=== PATIENT | female | born 1960 | race Caucasian/White ===

== ENCOUNTER 2017-05-24 09:16 | Emergency (ER) | payer OTHER ==
[~2017-05-24] VITALS: Ht 160 cm; Wt 98.9 kg
[~2017-05-24 09:16] MED LIST: ASPIR 8181 MG PO; ATENOLOL25 MG PO; ATENOLOL50 MG PO; CRUTCH1 EACH; DIPYRIDAMOLE25 MG PO; GLUCOPHAGE500 MG PO; HYDROCHLOROTHIA25 MG PO; INDOMETHACIN50 MG PO; LISINOPRIL10 MG PO; NORCO 5-325 TA1 EACH PO; SEPTRA DS TABL1 EACH PO; TRAMADOL HCL50 MG PO; VITAMIN E100 UNI1 PO; VITAMIN E400 UNI2 PO
[2017-05-24] MEDS ORDERED: ALLOPURINOL300 MG PO (09:31)
[2017-05-24] MEDS ORDERED: NORCO 5-325 TA1 EACH PO (10:35)
== END 2017-05-24 10:44 | disposition home or self-care (01) ==
LOC: ED 09:16
DX: S90.31XA Contusion of right foot, initial encounter (principal); I10 Essential (primary) hypertension; Z86.73 Personal history of transient ischemic attack (TIA), and cerebral infarction without residual deficits; R73.03 Prediabetes; Z88.5 Allergy status to narcotic agent; Z91.018 Allergy to other foods; Z91.038 Other insect allergy status; Z91.040 Latex allergy status; Z88.8 Allergy status to other drugs, medicaments and biological substances; Z88.7 Allergy status to serum and vaccine; Z79.82 Long term (current) use of aspirin; Z79.899 Other long term (current) drug therapy; Z79.84 Long term (current) use of oral hypoglycemic drugs; W50.1XXA Accidental kick by another person, initial encounter
CPT/HCPCS: 73630; 99283

== ENCOUNTER 2017-07-13 18:08 | Emergency (ER) | payer OTHER ==
[~2017-07-13] VITALS: Ht 160 cm; Wt 98.9 kg
[~2017-07-13 18:08] MED LIST changes: +ALLOPURINOL300 MG PO
[2017-07-13] MEDS ORDERED: CLOPIDOGREL75 MG PO (19:54)
== END 2017-07-13 21:02 | disposition home or self-care (01) ==
LOC: ED 18:08
DX: S81.812A Laceration without foreign body, left lower leg, initial encounter (principal); I10 Essential (primary) hypertension; Z86.73 Personal history of transient ischemic attack (TIA), and cerebral infarction without residual deficits; Z88.5 Allergy status to narcotic agent; Z88.8 Allergy status to other drugs, medicaments and biological substances; Z91.040 Latex allergy status; Z88.1 Allergy status to other antibiotic agents; Z79.899 Other long term (current) drug therapy; Z79.84 Long term (current) use of oral hypoglycemic drugs; Z79.82 Long term (current) use of aspirin; W26.8XXA Contact with other sharp object(s), not elsewhere classified, initial encounter
CPT/HCPCS: 99282

== ENCOUNTER 2025-04-28 09:46 | Day surgery (SDC) | payer OTHER ==
[~2025-04-28] VITALS: Ht 160 cm; Wt 96.0 kg
[~2025-04-28 09:46] MED LIST changes: +ALLOPURINOL200 MG PO; +CLOPIDOGREL75 MG PO; +IBLOOD GLUCOSE TEST STRIP 1 EA TEST VI PRN; +LACTATED RINGER'S 1,000 ML IV SCH; +LIDOCAINE HCL 1% 5 ML SDV INJ ONE; +METFORMIN HCL500 MG PO; +VAZALORE81 MG PO; +VITAMIN D310 MC3 PO; +ZESTORETIC 20-1 EAC1 PO; +ZETIA10 MG PO
[2025-04-28] MEDS ORDERED: LISINOPRIL-HCT1 EAC1 PO (10:03)
[2025-04-28 10:04] VITALS: BP 139/67
[2025-04-28] MEDS ORDERED: LIDOCAINE HCL 2% 5 ML SDV ONE (11:38)
[2025-04-28] MEDS ORDERED: KETAMINE in NS 50 MG/5 ML SYR ONE (12:00)
--- NOTE | 2025-04-28 12:22 | NUR ---
04/28/25 1222 Jessika Tamayo 1206 PT TO PACU AWAKE AND ALERT DENIES PAIN AND NAUSEA. PT CONVERSING WITH STAFF. PT ROLLED OVER ON TO HER BACK WITH OUT ASSIST.
[2025-04-28 12:31] VITALS: BP 115/63
== END 2025-04-28 12:43 | disposition home or self-care (01) ==
LOC: DS 09:46
PROVIDERS: ATTEND Surgery
PROC: 0DBE8ZX Excision of Large Intestine, Via Natural or Artificial Opening Endoscopic, Diagnostic (ICD-10-PCS; principal; 2025-04-28 11:00)
DX: Z12.11 Encounter for screening for malignant neoplasm of colon (principal); K57.30 Diverticulosis of large intestine without perforation or abscess without bleeding; D12.6 Benign neoplasm of colon, unspecified; E11.9 Type 2 diabetes mellitus without complications; I10 Essential (primary) hypertension; Z79.82 Long term (current) use of aspirin; Z79.899 Other long term (current) drug therapy; Z88.5 Allergy status to narcotic agent; Z88.8 Allergy status to other drugs, medicaments and biological substances
CPT/HCPCS: 00812; 88305; J2003; J2704; J3490; J7121